=== PATIENT | male | born 1990 | race African-American/Black ===

== ENCOUNTER 2016-07-25 20:50 | Emergency (ER) | payer MEDICARE ==
[~2016-07-25 20:50] MED LIST: KEPPRA 500MG500 MG PO; KEPPRA XR500 MG PO
== END 2016-07-25 21:50 | disposition home or self-care (01) ==
LOC: ED 20:50
DX: K21.9 Gastro-esophageal reflux disease without esophagitis (principal)

== ENCOUNTER 2016-11-02 15:22 | Emergency (ER) | payer MEDICARE ==
[2016-11-02] MEDS ORDERED: KEPPRA1000 MG PO (17:19)
[2016-11-02 17:23] VITALS: BP 110/58
== END 2016-11-02 17:30 | disposition home or self-care (01) ==
LOC: ED 15:22
DX: G40.909 Epilepsy, unspecified, not intractable, without status epilepticus (principal); R51 Headache

== ENCOUNTER 2016-12-14 20:07 | Emergency (ER) | payer MEDICARE ==
[~2016-12-14] VITALS: Ht 182.9 cm; Wt 92.9 kg
[~2016-12-14 20:07] MED LIST changes: +KEPPRA1000 MG PO
[2016-12-14] MEDS ORDERED: KEPPRA 500MG500 MG PO (20:24)
[2016-12-14 22:35] VITALS: BP 113/63
== END 2016-12-14 22:35 | disposition home or self-care (01) ==
LOC: ED 20:07
DX: G40.909 Epilepsy, unspecified, not intractable, without status epilepticus (principal); R51 Headache

== ENCOUNTER 2016-12-17 00:04 | Emergency (ER) | payer OTHER ==
[~2016-12-17] VITALS: Ht 182.9 cm; Wt 95.2 kg
[2016-12-17 02:25] VITALS: BP 145/84
== END 2016-12-17 02:25 ==
LOC: ED 00:04
DX: R45.851 Suicidal ideations (principal); F43.0 Acute stress reaction; G40.909 Epilepsy, unspecified, not intractable, without status epilepticus

== ENCOUNTER → 2016-12-31 | Outpatient (CLI) | payer MEDICARE ==
[2016-12-17 02:25] VITALS: BP 145/84
== END ==
LOC: RAD 17:45
DX: M25.532 Pain in left wrist (principal)

== ENCOUNTER 2017-01-25 14:42 | Emergency (ER) | payer OTHER ==
[~2017-01-25] VITALS: Wt 94.2 kg
[2017-01-25] MEDS ORDERED: KEPPRA 500MG500 MG PO (15:45)
[2017-01-25 16:04] VITALS: BP 146/61
== END 2017-01-25 16:08 ==
LOC: ED 14:42
DX: G40.909 Epilepsy, unspecified, not intractable, without status epilepticus (principal); G31.84 Mild cognitive impairment of uncertain or unknown etiology